=== PATIENT | female | born 1960 | race Two or more races ===

== ENCOUNTER 2021-09-07 20:57 | Emergency (ER) | payer SELFPAY ==
[~2021-09-07] VITALS: Ht 157.5 cm; Wt 79.4 kg
[2021-09-07 21:04] VITALS: BP 173/99
== END 2021-09-08 01:01 | disposition left against medical advice (07) ==
LOC: ER 21:00
DX: R42 Dizziness and giddiness (principal); R51.9 Headache, unspecified; Z53.21 Procedure and treatment not carried out due to patient leaving prior to being seen by health care provider